=== PATIENT | female | born 1945 | race Caucasian/White ===

== ENCOUNTER 2016-10-09 10:40 | Day surgery (SDC) | payer OTHER ==
[2016-10-05 15:34] LABS: HEMATOCRIT 28.4 % (37.0-47.0); HEMOGLOBIN 9.4 g/dL (12.0-16.0); MCH 30.5 PG (27-31); MCHC 33.1 g/dL (33-37); MCV 92.2 FL (81-99); MPV 8.1 FL (7.4-10.4); RBC 3.08 XMIL (4.2-5.4)
[2016-10-05 15:53] LABS: CALCIUM 10.3 mg/dL (8.8-10.2); POTASSIUM 4.8 mmol/L (3.5-5.1)
[2016-10-05 16:12] LABS: INR 1.07; PROTIME 11.3 Seconds (9.2-11.7); PTT 30.4 Seconds (22.0-36.0)
[2016-10-09] MEDS ORDERED: KEFZOL 2 GM/D5W 50 ML ONE (11:08)
[2016-10-09] MEDS ORDERED: LR 1,000 ML ONE ×2 (11:08→16:18)
[2016-10-09] MEDS ORDERED: REGLAN ONE (11:08)
[2016-10-09] MEDS ORDERED: PEPCID ONE (11:08)
[2016-10-09] MEDS ORDERED: DIPRIVAN 1% ONE (16:04)
[2016-10-09] MEDS ORDERED: FENTANYL ONE (16:05)
[2016-10-09] MEDS: MORPHINE ONE ×2 (16:14→16:21)
[2016-10-09] MEDS ORDERED: ZOFRAN ONE (16:18)
[2016-10-09] MEDS ORDERED: DECADRON ONE (16:18)
[2016-10-09] MEDS ORDERED: QUELICIN (DOSE) ONE (16:18)
[2016-10-09] MEDS ORDERED: XYLOCAINE-MPF 2% ONE (16:18)
[2016-10-09] MEDS ORDERED: PERCOCET-5 ONE (17:05)
[2016-10-09 17:32] VITALS: BP 145/62
[2016-10-09] MEDS ORDERED: DEMEROL IM PRN (17:54)
[2016-10-09] MEDS ORDERED: PERCOCET-5 PO PRN (17:54)
[2016-10-09] MEDS ORDERED: PHENERGAN IM PRN (17:54)
[2016-10-10] MEDS ORDERED: PYRIDIUM PO SCH (09:00)
--- NOTE | 2016-10-11 09:34 | OPERATIVE NOTE ---
PROCEDURE DATE : 10/09/2016 SURGEON: Lawson Ordoñez MD PREOPERATIVE DIAGNOSES: 1. Bilateral ureteral obstruction. 2. Metastatic cancer. 3. Hydronephrosis. 4. Flank pain. PRIMARY PROCEDURES: 1. Dilation of nephrostomy tract. 2. Right antegrade ureteroscopy. 3. Placement of a 6 Malay-24 cm ureteral stent. 4. Ureteroscopy with ureteral stricture dilation and then stent placement. INDICATION: A 70-year-old female who has metastatic cancer consuming her pelvis. She originally presented with left hydronephrosis and it was managed with a left ureteral stent. She developed right hydronephrosis and I attempted to place a right ureteral stent but could not do so due to distorted anatomy. She subsequently underwent right percutaneous nephrostomy tube by our radiology colleagues. She will like be a candidate for chronic stent exchanges and desires not to have a nephrostomy tube but instead an internal stent. FINDINGS: Successful dilatation of the tract to a 20 Malay. Ureteroscopy was used to dilate the distal ureteral stricture with eventual access to the bladder, successful stent placement is evident by cystoscopy with visualization of the stent coil. DESCRIPTION OF PROCEDURE: After obtaining informed consent, the patient was brought to the operating room. Preoperative antibiotics and general endotracheal anesthesia were administered. She was placed in the prone position with her head, upper and lower extremities appropriately padded. She was prepped and draped in sterile fashion. A 16 Malay Escobar catheter was introduced prior to that. The nephrostomy tube was cut and prepped into the field. Fluoroscopy was used for guidance. I placed a sensor wire via the nephrostomy tube and was able to coil it up in the renal pelvis. I then retrieved the nephrostomy tube, a small incision was made in the skin in order to accommodate a larger tube. We then sequentially dilated the tube up to a 20 Malay. Following that I introduced a dual lumen sheath and was able to place a PTFE wire with the end partially in the ureter. Now that we had two wires I used one as a safety wire and one as a working wire. I used the ureteroscope and advanced it over the working wire into the renal pelvis. I then was able to identify the ureteropelvic junction and the ureter. It was still somewhat dilated proximally. I slowly advanced the ureteroscope to the level of the distal ureter approximately 2- 3 cm away from the level of the bladder. At that point the ureter appeared to be very tapered. I pushed the wire through the ureteroscope and by fluoroscopy confirmed its placement in the bladder. I then passively dilated the ureter by advancing the ureteroscope over it until I saw the ureterovesical junction and eventually the bladder with a left ureteral stent coil. Now that we were satisfied with dilation I retrieved the ureteroscope and advanced a 6 Malay-24 cm stent over the wire to the presumed level of the bladder under fluoroscopy. The proximal coil appeared to be in the renal pelvis and was directly visualized. Following that I introduced a flexible cystoscope in order to confirm adequate stent placement. The bladder had some degree of mucous in it and the left stent was easily seen with mild encrustation. I was able to see the freshly placed coil of the right ureteral stent. Hence, we were satisfied with the position. I then retrieved all the wires and closed her skin incision with interrupted 3-0 chromic sutures. She was extubated and taken to the PACU for the recovery period. ESTIMATED BLOOD LOSS: 5 mL. COMPLICATIONS: None. DISPOSITION: To the PACU and subsequently home. We will plan to exchange both of her stents in approximately 3 months.
== END 2016-10-09 19:56 | disposition home or self-care (01) ==
LOC: OPS 10:40 → 4N 17:25 → UNDOADMOB 17:25 → UNDODISOB 19:56 → OPS 19:56
PROVIDERS: ATTEND Urology
DX: N13.1 Hydronephrosis with ureteral stricture, not elsewhere classified (principal); C53.9 Malignant neoplasm of cervix uteri, unspecified; Z93.6 Other artificial openings of urinary tract status; I10 Essential (primary) hypertension; I25.2 Old myocardial infarction; R10.84 Generalized abdominal pain; R35.0 Frequency of micturition; R39.15 Urgency of urination; M19.90 Unspecified osteoarthritis, unspecified site; Z79.82 Long term (current) use of aspirin; Z79.84 Long term (current) use of oral hypoglycemic drugs; Z79.899 Other long term (current) drug therapy
CPT/HCPCS: 76000; 80048; 82948; 85027; 85610; 85730; C2617; J0330; J0690; J1100; J2270; J2405; J3010; J7120